=== PATIENT | male | born 1955 | race Caucasian/White ===

== ENCOUNTER → 2017-08-06 09:43 | Outpatient (CLI) | payer BC, SELFPAY ==
--- NOTE | 2017-08-06 09:50 | XR_ITS ---
XR hip RT 2-3V w/pelvis HISTORY: ITS.REASON: RT HIP PAIN ORDERING PHYSICIAN: Carl Bianchi MD PATIENT AGE: 61 years COMPARISON: None FINDINGS: No fracture or dislocation is evident. No significant degenerative change. No lytic or blastic change. Unremarkable soft tissues IMPRESSION: Negative right hip
--- NOTE | 2017-08-06 09:50 | XR_ITS ---
XR chest 2V HISTORY: ITS.REASON: CHEST PAIN ORDERING PHYSICIAN: Carl Bianchi MD PATIENT AGE: 61 years COMPARISON: 02/22/2010 FINDINGS: The cardiomediastinal silhouette and pulmonary vascularity are within normal limits. COPD with hyperinflation and attenuation of the peripheral pulmonary vessels. The lungs are clear without infiltrates, suspicious nodules, or pleural effusions. There is mild wedging involving what appears to represent L1 not readily apparent on the previous exam. This was not present on previous chest CT of 09/20/2016.. IMPRESSION: 1. COPD, no acute cardiac or pulmonary findings. 2. Mild wedging of L1 anteriorly having developed in the interval compared to previous chest CT of 09/20/2016
== END ==
PROVIDERS: PCP Family Medicine; Visit Provider Family Medicine
DX: M25.551 Pain in right hip (principal); R07.89 Other chest pain
CPT/HCPCS: 71046; 73502

== ENCOUNTER → 2018-02-21 07:59 | Outpatient (CLI) | payer BC, SELFPAY ==
[2018-02-21 09:00] LABS: Alanine Aminotransferase 16 U/L (12-78); Albumin Level 4.6 gm/dL (3.4-5.0); Albumin/Globulin Ratio 1.7 (1.1-1.8); Alkaline Phosphatase 100 U/L (46-116); Anion Gap 20.8 mEq/L (5-15); Aspartate Amino Transferase 7 U/L (15-37); Bilirubin,Total 0.2 mg/dL (0.2-1.0); Blood Urea Nitrogen 35 mg/dL (7-18); Calcium 9.2 mg/dL (8.5-10.1); Carbon Dioxide 17 mmol/L (21.0-32.0); Chloride 105 mmol/L (98-107); Chol/HDL Ratio 5.1 (1-3.5); Cholesterol 188 mg/dL (140-200); Creatinine,Serum 1.87 mg/dL (0.70-1.30); Estimated Glomerular Filt Rate 37 ml/min (>60); GFR (African American) 44 ML/MIN (>60); Globulin 2.7 gm/dl (1.3-3.2); Glucose 90 mg/dL (74-106); HDL Cholesterol 37 mg/dL (27-67); LDL Cholesterol 97 mg/dL (0-130); Potassium 4.8 mmoL/L (3.5-5.1); Sodium 138 mmol/L (136-145); Total Protein,Serum 7.3 gm/dL (6.4-8.2); Triglycerides 270 mg/dL (30-200); VLDL Cholesterol 54 mg/dL (0-40)
== END ==
PROVIDERS: Visit Provider Family Medicine
DX: I10 Essential (primary) hypertension (principal); E78.5 Hyperlipidemia, unspecified
CPT/HCPCS: 36415; 80053; 80061

== ENCOUNTER → 2018-03-03 15:16 | Outpatient (CLI) | payer BC, SELFPAY ==
--- NOTE | 2018-03-03 15:21 | CT_ITS ---
CT lung screening EXAM: CT LUNG LOW DOSE WO CONTRAST HISTORY: 62 year old male with 60 pack-year smoking history, asymptomatic ITS.REASON: NICOTINE DEPENDENCE ORDERING PHYSICIAN: Javier Li MD PATIENT AGE: 62 years COMPARISON: 09/20/2016 TECHNIQUE: The exam was performed on a [employer] Light Speed [address] scanner using 2.90 mGy CTDI. A low dose helical CT CHEST was performed on a multi-detector scanner. All CT scans at the facility use one or more dose reduction, viz: automated exposure control, ma/kV adjustment per patient size (including targeted exams where dose is matched to indication, i.e. head), or iterative reconstruction technique. The LDCT was performed in a facility that meets the criteria for the screening program. Data regarding this exam was submitted to ACR which is an approved registry. The order for this exam indicates that it came as a result of a lung cancer screening counseling shard decision-making visit that included all the elements required of such a visit including smoking cessation. The radiologist interpreting this exam meets the CMS criteria for the LDCT lung cancer screening program. The exam is reported using the Lung-RADS classification scale and reported to the ACR registry. NOTE: This study was performed for the specific purposes of lung cancer screening and is not an alternative to diagnostic chest CT. RADIATION DOSE: CTDI vol(CT dose Index-volume) = 2.90mG DLP (Dose Length Product) = 104.46 mGcm FINDINGS: Centrilobular emphysematous change with scattered areas of fibrosis 3 mm noncalcified nodule right upper lobe laterally not previously identified. 3 mm noncalcified nodule right upper lobe #28 4 mm noncalcified nodule right upper lobe centrally #40 unchanged 3 mm nodule right middle lobe #68 not readily apparent previously 6 mm new nodule right lung base medially #71 5 mm nodule right lung base centrally #69 Coronary artery calcifications. Mild thickening of the pericardium anteriorly and ununited sternal fracture is present involving the superior aspect of the body of the sternum not present previously IMPRESSION: 1. Lung RADS Category: 4A, suspicious regarding multiple new small nodules 2. Other findings: Coronary artery calcifications Ununited sternal body fracture not readily apparent previously RECOMMENDATIONS: [address] chest without and with contrast
== END ==
PROVIDERS: Family Provider Family Medicine; PCP Family Medicine; Visit Provider Family Medicine
DX: Z12.2 Encounter for screening for malignant neoplasm of respiratory organs (principal); Z87.891 Personal history of nicotine dependence

== ENCOUNTER → 2018-05-05 08:50 | Outpatient (CLI) | payer BC, SELFPAY ==
[2018-05-05 10:51] LABS: Anion Gap 17.3 mEq/L (5-15); Blood Urea Nitrogen 21 mg/dL (7-18); Calcium 9.1 mg/dL (8.5-10.1); Carbon Dioxide 21 mmol/L (21.0-32.0); Chloride 108 mmol/L (98-107); Creatinine,Serum 1.24 mg/dL (0.70-1.30); Estimated Glomerular Filt Rate 59 ml/min (>60); GFR (African American) 71 ML/MIN (>60); Glucose 96 mg/dL (74-106); Potassium 4.3 mmoL/L (3.5-5.1); Sodium 142 mmol/L (136-145)
[2018-05-06 13:19] LABS: Hep B Surface Ab, Qual Non Reactive (.); Hepatitis C Antibody <0.1 s/co ratio (0.0-0.9)
== END ==
PROVIDERS: Visit Provider Family Medicine
DX: Z00.00 Encounter for general adult medical examination without abnormal findings (principal); Z01.812 Encounter for preprocedural laboratory examination; N28.9 Disorder of kidney and ureter, unspecified
CPT/HCPCS: 36415; 80048; 86706; 87380; 93005

== ENCOUNTER → 2018-06-06 12:32 | Outpatient (CLI) | payer BC, SELFPAY ==
--- NOTE | 2018-06-06 12:39 | CT_ITS ---
CT chest wo/w con HISTORY: Follow-up pulmonary nodules, abnormal chest CT,, tobacco use, smoker ITS.REASON: [address], follow up abnormal screening chest CT ORDERING PHYSICIAN: Gaston Vee MD PATIENT AGE: 62 years COMPARISON: 03/03/2019 Technique: Axial images obtained without and following intravenous administration of 75 mL of Isovue-370 with sagittal and coronal reformats. All CT scans at the facility use one or more dose reduction, viz: automated exposure control, ma/kV adjustment per patient size (including targeted exams where dose is matched to indication, i.e. head), or iterative reconstruction technique. FINDINGS: No mediastinal or hilar mass or adenopathy. There are coronary artery calcifications as well as some calcification of the aortic valve. The heart size is normal. There is minimal pericardial thickening anteriorly is nonspecific. No evidence of aortic aneurysm or central pulmonary embolus. There are centrilobular emphysematous changes with scattered areas of fibrosis. There are multiple small pulmonary nodular opacities once again noted. Most of these are unchanged. The previously described 6 mm nodule in the right lung base medially however is less apparent. No change 4 mm nodule right middle lobe image #42. No change 4 mm nodule right upper lobe image #26. No enhancing lesions evident. No effusions or infiltrates. There are mild fibrotic changes in left lung base. Upper abdominal images are unremarkable. There is chronic wedging involving the L1 vertebral body. IMPRESSION: 1. Small right-sided pulmonary nodules as described above. These are unchanged to somewhat less apparent. Previously noted 6 mm nodule right lung base is less apparent. Suggest continued 6 month follow-up which can be done without contrast 2. Centrilobular emphysema with coronary artery calcification.
[2018-06-06 12:40] LABS: Hematocrit 44.7 % (42.0-52.0); Hemoglobin 13.7 g/dL (14.1-18.0)
[2018-06-06 12:48] LABS: Anion Gap 17.3 mEq/L (5-15); Blood Urea Nitrogen 21 mg/dL (7-18); Calcium 8.7 mg/dL (8.5-10.1); Carbon Dioxide 21 mmol/L (21.0-32.0); Chloride 105 mmol/L (98-107); Creatinine,Serum 1.29 mg/dL (0.70-1.30); Estimated Glomerular Filt Rate 56 ml/min (>60); GFR (African American) 68 ML/MIN (>60); Glucose 100 mg/dL (74-106); Potassium 4.3 mmoL/L (3.5-5.1); Sodium 139 mmol/L (136-145)
== END ==
PROVIDERS: PCP Family Medicine; Visit Provider Otolaryngology
DX: Z01.812 Encounter for preprocedural laboratory examination (principal); R93.89 Abnormal findings on diagnostic imaging of other specified body structures
CPT/HCPCS: 36415; 71270; 80048; 85014; 85018; Q9967

== ENCOUNTER → 2018-08-13 07:17 | Outpatient (CLI) | payer BC, SELFPAY ==
[2018-08-13 10:29] LABS: Alanine Aminotransferase 16 U/L (12-78); Albumin Level 4.3 gm/dL (3.4-5.0); Albumin/Globulin Ratio 1.3 (1.1-1.8); Alkaline Phosphatase 107 U/L (46-116); Anion Gap 18.2 mEq/L (5-15); Aspartate Amino Transferase 11 U/L (15-37); Bilirubin,Total 0.2 mg/dL (0.2-1.0); Blood Urea Nitrogen 20 mg/dL (7-18); Calcium 9.3 mg/dL (8.5-10.1); Carbon Dioxide 19 mmol/L (21.0-32.0); Chloride 107 mmol/L (98-107); Chol/HDL Ratio 5.3 (1-3.5); Cholesterol 217 mg/dL (140-200); Creatinine,Serum 1.26 mg/dL (0.70-1.30); Estimated Glomerular Filt Rate 58 ml/min (>60); GFR (African American) 70 ML/MIN (>60); Globulin 3.2 gm/dl (1.3-3.2); Glucose 108 mg/dL (74-106); HDL Cholesterol 41 mg/dL (27-67); LDL Cholesterol 111 mg/dL (0-130); Potassium 4.2 mmoL/L (3.5-5.1); Prostate Specific Ag Screen 0.5 ng/mL (0.0-4.0); Sodium 140 mmol/L (136-145); Total Protein,Serum 7.5 gm/dL (6.4-8.2); Triglycerides 326 mg/dL (30-200); VLDL Cholesterol 65 mg/dL (0-40)
== END ==
PROVIDERS: Visit Provider Family Medicine
DX: E78.5 Hyperlipidemia, unspecified (principal); I10 Essential (primary) hypertension; Z12.5 Encounter for screening for malignant neoplasm of prostate
CPT/HCPCS: 36415; 80053; 80061; G0103

== ENCOUNTER 2019-01-27 12:08 | Outpatient (CLI) | payer BC, SELFPAY ==
[2019-01-27 12:45] VITALS: BP 150/78; PULSE 84; RESP 20; TEMP 36.9; O2SAT 95
[2019-01-27 13:15] VITALS: BP 152/80; PULSE 68; RESP 20; TEMP 36.9; O2SAT 95
[2019-01-27 13:50] VITALS: BP 158/74; PULSE 86; RESP 20; TEMP 36.9; O2SAT 95
== END 2019-01-27 13:55 | disposition home or self-care (01) ==
LOC: INF 12:11
PROVIDERS: PCP Family Medicine; Visit Provider Family Medicine
DX: K52.9 Noninfective gastroenteritis and colitis, unspecified (principal)
CPT/HCPCS: 96360

== ENCOUNTER → 2019-06-10 13:07 | Outpatient (CLI) | payer BC, SELFPAY ==
--- NOTE | 2019-06-10 14:20 | CT_ITS ---
PROCEDURE: CT CHEST WO/W CON CLINCAL INDICATION: PULMONARY NODULES Follow-up pulmonary nodules COMPARISON: LUNGSCREEN CT lung screening from 03/03/[address] chest wo/w con from 06/06/2018 TECHNIQUE: IV Contrast: 75ml Optiray 350 Axial images obtained with sagittal and coronal reformats. All CT scans at the facility use one or more dose reduction, viz: automated exposure control, ma/kV adjustment per patient size (including targeted exams where dose is matched to indication, i.e. head), or iterative reconstruction technique. FINDINGS: HEART,AORTA,PULMONARY ARTERIES normal heart size. Coronary artery calcium noted. There is also some calcification the aortic valve. Minimal thickening of the pericardium anteriorly. MEDIASTINAL AND HILAR STRUCTURES: No mediastinal or hilar mass evident. No dominant adenopathy. LUNGS: COPD/centrilobular emphysema there is an ill-defined 5 mm opacity in the superior segment of the right lower lobe not significantly changed. No new nodules are evident. Stable small nodular opacities on the right. No suspicious lesions. No effusions or infiltrates. PLEURAL SPACES: No significant effusion. No evidence of pneumothorax. BONY STRUCTURES: No acute bony abnormalities apparent. LYMPH NODES: No enlarged lymph nodes evident. UPPER ABDOMEN: Unremarkable. ADDITIONAL FINDINGS: Chronic wedging of L1. IMPRESSION: Stable CT appearance of the chest. Stable right-sided nodular opacities. No acute finding Dictated by: Rayray Mendiola MD 06/12/2019 05:39 Electronically signed by Rayray Mendiola MD in [place] 06/12/2019 12:10
[2019-06-10 14:34] LABS: Blood Urea Nitrogen 29 mg/dL (7-18); Creatinine,Serum 1.54 mg/dL (0.70-1.30); Estimated Glomerular Filt Rate 46 ml/min (>60); GFR (African American) 55 ML/MIN (>60)
== END ==
PROVIDERS: Visit Provider Nurse Practitioner Family
DX: R91.1 Solitary pulmonary nodule (principal)
CPT/HCPCS: 36415; 71270; 82565; 84520; Q9967

== ENCOUNTER 2020-01-14 18:58 | Emergency (ER) | payer MEDICARE, BC, SELFPAY ==
[2020-01-14 19:20] VITALS: BP 148/85; PULSE 78; RESP 20; TEMP 36.6; O2SAT 98; BMI 21.4
--- NOTE | 2020-01-14 19:20 | XR_ITS ---
PROCEDURE: XR RIBS RT MIN 3V W CXR1V CLINICAL INDICATION: FALL Injury with pain on the right COMPARISON: CXR2V XR chest 2V from 08/06/2017 CT CHEST WO/W CON from 06/10/2019 FINDINGS: Frontal view of the chest shows mild atelectatic changes in the lung bases. There is some minimal cortical regularity involving the 7th and 9th ribs anterior laterally which could be due to a nondisplaced fracture. IMPRESSION: Nondisplaced fracture right 7th and 9th ribs ribs Dictated by: Rayray Mendiola MD 01/15/2020 08:08 Electronically signed by Rayray Mendiola MD in [place] 01/15/2020 08:08
[2020-01-14 20:00] VITALS: BP 148/85; PULSE 78; RESP 20; TEMP 36.6; O2SAT 98
--- NOTE | 2020-01-14 20:00 | HMH.EDUTC ---
[facility] [place] Disposition Clinical Impression: Rib pain on right side Fall Qualifiers: Encounter type: initial encounter Qualified Code(s): W19.XXXA - Unspecified fall, initial encounter Disposition: Home, Self-Care Condition on Discharge: Good Instructions: DI for Rib Contusion Additional Instructions: Use the incentive spirometer as directed. Follow up with your regular doctor. Take ibuprofen or alieve for you pain. GO TO THE ER FOR ANY WORSENING SYMPTOMS OR CONCERNS Referrals: Javier Li MD [Primary Care Provider] - Time of Disposition: 20:08 Medical Decision Making - Medical Records Medical records reviewed: No: I reviewed the patient's medical records. - Lobo Inquiry Pt receiving controlled substance: No Vital Signs: 01/14/20 19:20 01/14/20 20:00 Temperature 97.9 F 97.9 F Temperature Source Oral Pulse Rate 78 Pulse Rate [Left Brachial] 78 Respiratory Rate 20 20 Blood Pressure 148/85 H Blood Pressure [Left Arm] 148/85 H Blood Pressure Mean [Left Arm] 106 Blood Pressure Source [Left Arm] Automatic Cuff Blood Pressure Position [Left Arm] Sitting 02 Sat by Pulse Oximetry 98 Oxygen Delivery Method Room Air Orders (Tests/Meds): ED MEDICATIONS Discontinued Medications Generic Name Dose Route Start Last Admin Trade Name Freq PRN Reason Stop Dose Admin Ketorolac Tromethamine 30 mg 01/14/20 19:46 01/14/20 19:51 Toradol 60mg/2ml Vial IM 01/14/20 19:47 30 mg ONCE ONE Administration ORDERS Category Date Time Status XR ribs RT min 3V w CXR1V Stat Exams 01/14/20 19:20 Taken [facility] [place] HPI - General Stated complaint: AO 0709@1600 fell hit right side Time Seen by Provider: 01/14/20 19:25 Mode of Arrival: Ambulatory Source of Information: Patient Limitations: No Limitations Description of Symptoms (Recalled from Triage Doc. by RN): PATIENT C/O RIGHT RIB PAIN WITH SHORTNESS OF BREATH AFTER HE WAS TRIPPED BY HIS CAT AND FELL INTO A STAINLESS STEEL CART AT HOME TODAY. DENIES ANY OTHER INJURIES HEENT Symptoms (Recalled from RN notes): No Resp Symptoms (Recalled from RN notes): No Skin Symptoms (Recalled from RN notes): No MS Symptoms (Recalled from RN notes): Yes Functional Status (Recalled from RN notes): WNL - History of Present Illness Provider Complaint: He states that he was tripped up by his cat and he fell into a metal table. He hit the table with his right ribs. Since then he has had right rib pain that is worse with deep breathing and coughing. - Related Data Home Medications Medication Instructions Recorded Confirmed Atorvastatin Calcium [Atorvastatin 20 mg PO HS 01/27/19 01/14/20 20mg Tab] Metoprolol Succinate [Toprol XL 25 mg PO DAILY 01/27/19 01/14/20 25mg tablet] Allergies Allergy/AdvReac Type Severity Reaction Status Date / Time ciprofloxacin [From CIPRO] Allergy Unknown I-HIVES Verified 01/27/19 12:33 codeine [CODEINE] Allergy Unknown NAUSEA/VOMI Verified 01/27/19 12:33 T PENCILLIN Allergy Unknown I-HIVES Uncoded 06/25/17 14:45 - Worker's Comp Is this a Worker's Comp case?: No [facility] History - Hepatitis A Screen Drug use history?: No High risk sexual behaviors?: No History of sexually transmitted infection?: No Currently employed?: No Childcare worker?: No Do you have indoor plumbing?: Yes Do you have electricity?: Yes Attestation statement:: This patient has been screened for Hepatitis A risk factors. I have reviewed the patient's past medical history: Yes Medical History: Reports:: Cancer Laterality Cases: Bilateral: Tonsillectomy - Social History Alcohol Intake: never Occupational Status: other ROS Obtained: Yes All systems reviewed & no additional complaints - Constitutional Constitutional: Denies chills, Denies fever(s) - Cardiovascular Cardiovascular: Reports as per HPI - Respiratory Respiratory: No chest congestion, No cough, No dyspnea, No coughing up blood, No stridor
--- NOTE | 2020-01-14 20:07 | PC.NURSE ---
PATIENT GIVEN INCENTIVE SPIROMETER AND INSTRUCTED ON HOW TO USE, HOW OFTEN TO USE IT, AND REASON/IMPORTANCE OF USING IT. PATIENT VERBALIZED UNDERSTANDING.
== END 2020-01-14 20:10 | disposition home or self-care (01) ==
PROVIDERS: Emergency Provider Nurse Practitioner Family; PCP Family Medicine
DX: S22.41XA Multiple fractures of ribs, right side, initial encounter for closed fracture (principal); W01.190A Fall on same level from slipping, tripping and stumbling with subsequent striking against furniture, initial encounter; Y92.019 Unspecified place in single-family (private) house as the place of occurrence of the external cause; Z88.0 Allergy status to penicillin; Z88.5 Allergy status to narcotic agent
CPT/HCPCS: 71101; 96372; 99202

== ENCOUNTER → 2020-04-01 11:13 | Outpatient (CLI) | payer MEDICARE, BC, SELFPAY ==
--- NOTE | 2020-04-01 11:27 | ECG_ITS ---
APPROVED REPORT Exam: Resting ECG HR:69 bpm ECG Measurements Heart Rate 69 AXES WY 170 P 58 QRSd 82 QRS 58 QT 424 T 30 QTc 454 <Conclusion> Normal sinus rhythm Normal ECG Electronically signed by : Naeem Rose, 04/02/2020 06:25:03
== END ==
PROVIDERS: PCP Family Medicine; Visit Provider Family Medicine
DX: Z00.00 Encounter for general adult medical examination without abnormal findings (principal)
CPT/HCPCS: 93005

== ENCOUNTER → 2020-05-05 12:56 | Outpatient (CLI) | payer MEDICARE, BC, SELFPAY ==
--- NOTE | 2020-05-06 14:12 | PC.NURSE ---
PATIENT TOOK HST HOME - BROUGHT DEVICE BACK AND STATED IT WASN'T WORKING - CODE 6 - NO DATA TO UPLOAD NO CHARGE TO PATIENT - PATIENT WILL BE RESCHEDULED..
== END ==
PROVIDERS: PCP Family Medicine; Visit Provider Family Medicine
DX: I10 Essential (primary) hypertension (principal); R06.83 Snoring

== ENCOUNTER → 2020-05-24 12:55 | Outpatient (CLI) | payer MEDICARE, BC, SELFPAY | PROVIDERS: PCP Family Medicine; Visit Provider Family Medicine | DX: G47.33 Obstructive sleep apnea (adult) (pediatric) (principal); R06.83 Snoring; I10 Essential (primary) hypertension | CPT/HCPCS: G0399 ==

== ENCOUNTER → 2020-06-13 07:57 | Outpatient (CLI) | payer MEDICARE, BC, SELFPAY ==
--- NOTE | 2020-06-13 08:01 | CT_ITS ---
PROCEDURE: CT LUNG SCREENING CLINICAL INDICATION: HX OF NICOTINE DEPENDENCE FORMER SMOKER QUIT 3 YEARS AGO 60 pack year smoking history family hx lung ca pt hx of lymphoma prior LDLS, 03/03/18 chest wo/w, 06/10/19 COMPARISON: CT CT CHEST WO/W CON from 06/10/2019 TECHNIQUE: The exam was performed on a [employer] Light Speed [address] scanner using 2.90 mGy CTDI. A low dose helical CT CHEST was performed on a multi-detector scanner. All CT scans at the facility use one or more dose reduction, viz: automated exposure control, ma/kV adjustment per patient size (including targeted exams where dose is matched to indication, i.e. head), or iterative reconstruction technique. The LDCT was performed in a facility that meets the criteria for the screening program. Data regarding this exam was submitted to ACR which is an approved registry. The order for this exam indicates that it came as a result of a lung cancer screening counseling shard decision-making visit that included all the elements required of such a visit including smoking cessation. The radiologist interpreting this exam meets the CMS criteria for the LDCT lung cancer screening program. The exam is reported using the Lung-RADS classification scale and reported to the ACR registry. NOTE: This study was performed for the specific purposes of lung cancer screening and is not an alternative to diagnostic chest CT. RADIATION DOSE: CTDI vol(CT dose Index-volume) = 2.90mG DLP (Dose Length Product) = 115.16 mGcm FINDINGS: COPD with scattered areas of scarring with mild bronchial thickening. Previously described nodular opacity superior segment right lower lobe somewhat less apparent. No new nodules. Calcified granuloma is present in the right lower lobe. There is mild chronic wedging of L1 not significantly changed. OTHER FINDINGS: Coronary artery calcification noted. IMPRESSION: Lung-RADS Category 2 Benign Appearance or Behavior Follow-up: Continue annual screening with LDCT in 12 months Dictated by: Rayray Mendiola MD 07/04/2020 11:27 Rayray Mendiola MD in [place] 07/04/2020 11:27
== END ==
PROVIDERS: PCP Family Medicine; Visit Provider Family Medicine
DX: Z87.891 Personal history of nicotine dependence (principal); Z12.2 Encounter for screening for malignant neoplasm of respiratory organs

== ENCOUNTER → 2020-12-12 09:49 | Outpatient (CLI) | payer MEDICARE, BC, SELFPAY | PROVIDERS: PCP Family Medicine; Visit Provider Specialist | DX: G47.33 Obstructive sleep apnea (adult) (pediatric) (principal) | CPT/HCPCS: G0399 ==

== ENCOUNTER → 2022-01-17 07:07 | Outpatient (CLI) | payer MEDICARE, BC, SELFPAY ==
--- NOTE | 2022-01-17 07:14 | CT_ITS ---
FINAL REPORT TECHNIQUE: Axial images were obtained from the lung apex to the mid abdomen by computed tomography. This study was performed with techniques to keep radiation doses as low as reasonably achievable (ALARA). Individualized dose reduction techniques using automated exposure control or adjustment of mA and/or kV according to the patient's size were employed. CLINICAL HISTORY: H/O NICOTINE DEPENDENCE FORMER SMOKER 2PPD X30 YEARS, QUIT 5 YEARS AGO COMPARISON: 06/13/2020 FINDINGS: CHEST CT LOW DOSE CTDI vol (mGy): 2.90 DLP (mGy-cm): 106.81 There is no axillary adenopathy. There is no hilar or mediastinal adenopathy. The ascending aorta measures 3.7 cm in diameter. The heart is normal in size. There is no pericardial or pleural effusion. There is scarring at the lung bases. There is a new 4 mm nodule in the right lower lobe well seen on image 186 of series 2 Limited images of the upper abdomen are unremarkable. IMPRESSION: New right lower lobe nodule. Lung RADS category 3. Recommend 6 month follow-up low-dose chest CT. Reviewed, Interpreted and Dictated by Jony Stein MD Transcribed by Alma Feng Authenticated and [facility]
[2022-01-17 08:30] VITALS: PULSE 78; PULSE 79
== END ==
PROVIDERS: PCP Family Medicine; Visit Provider Family Medicine
DX: Z87.891 Personal history of nicotine dependence (principal); Z12.2 Encounter for screening for malignant neoplasm of respiratory organs; R06.09 Other forms of dyspnea
CPT/HCPCS: 71271; 94060; 94640; 94727; 94729

== ENCOUNTER → 2022-07-30 13:29 | Outpatient (CLI) | payer MEDICARE, BC, SELFPAY ==
--- NOTE | 2022-07-30 13:32 | CT_ITS ---
FINAL REPORT TECHNIQUE: Thin section axial images were obtained from the lung apices through the upper abdomen without contrast. This study was performed with techniques to keep radiation doses as low as reasonably achievable (ALARA). Individualized dose reduction techniques using automated exposure control or adjustment of mA and/or kV according to the patient's size were employed. CLINICAL HISTORY: LUNG NODULE, 6month followup COMPARISON: January 2022 FINDINGS: There is no mediastinal, hilar, or axillary lymphadenopathy. There is no pleural or pericardial effusion. There is linear scarring in the lingula. Emphysematous changes are present. There is a stable 4 mm nodule in the right lower lobe on image 44. Limited, unenhanced evaluation of the upper abdomen is without acute abnormality. There is no acute osseous abnormality. IMPRESSION: Stable 4 mm right lower lobe nodule. Recommend follow-up in 12 months. Reviewed, Interpreted and Dictated by Maile Wise MD Transcribed by Kush Mars Authenticated and . [facility]
== END ==
PROVIDERS: PCP Family Medicine; Visit Provider Physician Assistant
DX: R91.1 Solitary pulmonary nodule (principal)
CPT/HCPCS: 71250

== ENCOUNTER → 2022-11-01 10:30 | Outpatient (CLI) | payer MEDICARE, BC, SELFPAY ==
--- NOTE | 2022-11-01 10:37 | CT_ITS ---
FINAL REPORT TECHNIQUE: Thin section axial CT images with coronal and sagittal reformats were performed through the neck. This study was performed with techniques to keep radiation doses as low as reasonably achievable (ALARA). Individualized dose reduction techniques using automated exposure control or adjustment of mA and/or kV according to the patient''s size were employed. CLINICAL HISTORY: LYMPHOMA FINDINGS: The nasopharynx , oropharynx, hypopharynx, and larynx are unremarkable. The thyroid gland is unremarkable. There is no mass or adenopathy identified. Mild to moderate degenerative changes are seen in the cervical spine. There is mild anterolisthesis of C4 on C5. Mild emphysema and scarring is seen in the lung apices. IMPRESSION: No mass or adenopathy identified. Reviewed, Interpreted and Dictated by Jeison Cruz III, MD Transcribed by Michelle Sanchez Authenticated and [facility]
== END ==
PROVIDERS: PCP Family Medicine; Visit Provider Family Medicine
DX: C85.91 Non-Hodgkin lymphoma, unspecified, lymph nodes of head, face, and neck (principal)
CPT/HCPCS: 70490

== ENCOUNTER 2023-07-30 12:11 | Day surgery (SDC) | payer MEDICARE, BC, SELFPAY ==
[2023-07-30] MEDS: LACTATED RINGERS 1000ML 1,000 ML 25 ML IV (12:26)
[2023-07-30 12:30] VITALS: BP 150/91; PULSE 82; RESP 18; TEMP 36.3; O2SAT 97; BMI 23.5
--- NOTE | 2023-07-30 12:35 | EXP.ANES.CKL ---
[facility] Disclaimer: The information contained in this section may have been updated after the patient was seen, as this information can be updated by other users. Medical History HLD (hyperlipidemia) HTN (hypertension) Surgical History History of appendectomy History of knee replacement Hx of hemorrhoidectomy Hx of hernia repair Hx of nasal septoplasty Hx of unilateral orchiectomy Family History Other No significant family history Social History Smoking Status: Former smoker tobacco type: cigarettes alcohol intake: never substance use type: denies use current occupational status: retired Travel in the last 8 weeks: None household members: spouse housing: house [facility] Anesthesia Checklist Patient Identification Patient Identification: Arm Band and Verbal (Name & ) Structural Data Admitted From: Home Planned Operative Procedure/s: Colonoscopy Consent for Planned Operative Procedure(s) Verified: Yes NPO Status Verified Time NPO: 00:00 Airway Assessment Mallampati Score:: Class II C-Spine Mobility Assessed: Yes TMJ Mobility Assessed: Yes Dentition: Good Dentition Neurological Assessment Level of Consciousness: Awake Hx Seizures: No Numbness or tingling in extremities: No Anesthesia Plan Anesthesia Risk discussed: Yes Anesthesia Plan: Verified ASA Class: II Anesthesia Type: MAC
[2023-07-30 12:41] VITALS: O2SAT 97
[2023-07-30 13:15] VITALS: BP 80/51; PULSE 67; RESP 14; TEMP 36.8; O2SAT 94
--- NOTE | 2023-07-30 13:16 | P.PCN_ITS ---
Procedure: Date: 07/30/23 Patient Date of :: 1955 Procedure Performed:: Colonoscopy Indications:: Screening Performing Provider:: Amadou Lacy MD Referring Provider:: . Sedation:: Monitored anesthesia care Procedure:: After informed consent was obtained the patient was taken to the endoscopy suite. Sedation ensued after the patient was transferred to the left lateral decubitus position. Pulse, blood pressure, and oxygen saturation were monitored throughout the procedure. Digital rectal exam revealed no significant abnormality. The colonoscope was placed in position. The entire colon was eval uated. The colonoscope was carefully removed and the patient was transferred to recovery in stable condition. Please see findings and specimens below for detail. Findings:: Bowel preparation fairly poor Moderate spasticity Moderate lack of relaxation Specimens:: None Recommendations:: Repeat colonoscopy in 1-2 years with extended bowel preparation Complications:: No immediate with the exception of fairly poor bowel preparation Estimated blood obtained (mL): 0 Colonoscopy Component Colonoscopy Component Was a colonoscopy performed during today's procedure?: Yes Recommended follow up colonoscopy of at least 10 years?: No If no, follow up colonoscopy recommended in ___ years?: (See above) Reason for not recommending >/= 10 yr follow-up interval?: (See above)
[2023-07-30 13:25] VITALS: BP 95/66; PULSE 80; RESP 16; O2SAT 95
[2023-07-30 13:35] VITALS: BP 114/63; PULSE 72; RESP 17; O2SAT 94
[2023-07-30 13:45] VITALS: BP 114/63; PULSE 72; RESP 18; O2SAT 94
== END 2023-07-30 13:50 | disposition home or self-care (01) ==
PROVIDERS: PCP Family Medicine; Visit Provider Surgery
PROC: 0DJD8ZZ Inspection of Lower Intestinal Tract, Via Natural or Artificial Opening Endoscopic (ICD-10-PCS; CPT G0121; principal; 2023-07-30 13:30)
DX: Z12.11 Encounter for screening for malignant neoplasm of colon (principal)
CPT/HCPCS: G0121

== ENCOUNTER 2023-08-06 14:44 | Outpatient (CLI) | payer MEDICARE, BC, SELFPAY ==
--- NOTE | 2023-08-06 14:54 | CT_ITS ---
FINAL REPORT TECHNIQUE: Axial CT without IV contrast administration. This study was performed with techniques to keep radiation doses as low as reasonably achievable (ALARA). Individualized dose reduction techniques using automated exposure control or adjustment of mA and/or kV according to the patient's size were employed. CLINICAL HISTORY: PULMONARY NODULE COMPARISON: 07/30/2022 FINDINGS: No acute lung disease is present. Note is made of emphysema. Lingular scarring is identified. No pleural or pericardial effusion is seen. No adenopathy or mass lesion is present. IMPRESSION: No suspicious findings. Reviewed, Interpreted and Dictated by Eda Simms MD Transcribed by Alma Feng Authenticated and [facility]
== END 2023-08-06 23:59 ==
LOC: RAD 14:44
PROVIDERS: PCP Family Medicine; Visit Provider Family Medicine
DX: R91.1 Solitary pulmonary nodule (principal)
CPT/HCPCS: 71250

== ENCOUNTER 2024-04-09 14:49 | Outpatient (CLI) | payer MEDICARE, BC, SELFPAY ==
--- NOTE | 2024-04-09 14:54 | XR_ITS ---
FINAL REPORT TECHNIQUE: 5 views CLINICAL HISTORY: SCIATICA FINDINGS: There is a 50% compression deformity of T12 anteriorly. There are associated hypertrophic changes. There are mild anterior osteophyte seen at L2-3 and mild facet sclerosis at the lower lumbar spine. There is no malalignment. There are no significant degenerative changes. IMPRESSION: 50% compression deformity of T12 anteriorly with associated hypertrophic change. Reviewed, Interpreted and Dictated by Jony Stein MD Transcribed by Zena Gavin Authenticated and [facility]
== END 2024-04-09 23:59 | disposition home or self-care (01) ==
LOC: RAD 14:50
PROVIDERS: PCP Family Medicine; Visit Provider Family Medicine
DX: M54.30 Sciatica, unspecified side (principal)
CPT/HCPCS: 72110

== ENCOUNTER 2024-05-26 09:29 | Outpatient (CLI) | payer MEDICARE, BC, SELFPAY ==
--- NOTE | 2024-05-26 09:39 | XR_ITS ---
FINAL REPORT CLINICAL HISTORY: PAIN FINDINGS: Right hip Three views were obtained. There is no fracture or dislocation. There is mild narrowing of the right hip joint space. No soft tissue abnormality is identified. IMPRESSION: Mild degenerative changes. Reviewed, Interpreted and Dictated by Jony Stein MD Transcribed by Alma Feng Authenticated and [facility]
== END 2024-05-26 23:59 | disposition home or self-care (01) ==
LOC: RAD 09:31
PROVIDERS: PCP Family Medicine; Visit Provider Family Medicine
DX: M25.551 Pain in right hip (principal)
CPT/HCPCS: 73502

== ENCOUNTER 2024-08-04 06:08 | Day surgery (SDC) | payer MEDICARE, BC, SELFPAY ==
[2024-07-28 12:55] VITALS: BMI 24.2
[2024-08-04 06:29] VITALS: BP 159/92; PULSE 66; RESP 18; TEMP 36.7; O2SAT 94
[2024-08-04] MEDS: LACTATED RINGERS 1000ML 1,000 ML 50 ML IV (06:38)
--- NOTE | 2024-08-04 07:04 | HMH.SCOPE ---
Procedure: Date: 08/04/24 Patient Date of :: 1955 Procedure Performed:: Colonoscopy with polypectomy Indications:: Screening Note: Colonoscopy in July 2023 was complicated by poor bowel preparation and moderate spasticity/lack of relaxation. Short-term repeat evaluation warranted. Performing Provider:: Amadou Lacy MD Referring Provider:: . Sedation:: Monitored anesthesia care Procedure:: After informed consent was obtained the patient was taken to the endoscopy suite. Sedation ensued after the patient was transferred to the left lateral decubitus position. Pulse, blood pressure, and oxygen saturation were monitored throughout the procedure. Digital rectal exam revealed no significant abnormality. The colonoscope was placed in position. The entire colon was evaluated. The colonoscope was carefully removed and the patient was transferred to recovery in stable condition. Please see findings and specimens below for detail. Findings:: Bowel preparation fair in areas and moderate to poor in others Fairly significant tortuosity Severe spasticity/lack of relaxation Polyps (see specimens) Specimens:: Sessile proximal right colon polyp (cold snare) Polyp at 15 cm (cold snare) Recommendations:: Timing of repeat colonoscopy is pending pathology will likely be between 2-3 years with alternate/extended bowel preparation Complications:: No immediate Estimated blood obtained (mL): 1 Colonoscopy Component Colonoscopy Component Was a colonoscopy performed during today's procedure?: Yes Recommended follow up colonoscopy of at least 10 years?: No If no, follow up colonoscopy recommended in ___ years?: (See above) Reason for not recommending >/= 10 yr follow-up interval?: (See above)
[2024-08-04 07:17] VITALS: O2SAT 99
[2024-08-04 07:51] VITALS: BP 89/57; PULSE 78; RESP 16; TEMP 36.6; O2SAT 94
--- NOTE | 2024-08-04 07:53 | P.PNANES_ITS ---
[facility] Disclaimer: The information contained in this section may have been updated after the patient was seen, as this information can be updated by other users. Medical History Non Hodgkin's lymphoma Sleep apnea HLD (hyperlipidemia) HTN (hypertension) Surgical History Hx of hernia repair Hx of unilateral orchiectomy History of appendectomy Hx of nasal septoplasty Hx of hemorrhoidectomy History of knee replacement Family History Other Lung cancer No significant family history Pancreatic cancer Social History (Updated 08/04/24 @ 06:30 by Margi Shannon RN) Smoking Status: Former smoker tobacco type: cigarettes alcohol intake: never substance use type: denies use current occupational status: retired Travel in the last 8 weeks: None household members: spouse housing: house caffeine: Yes Have you lived/traveled outside [place] in past 30 days?: No Contact w/someone who lives/traveled outside [place] past 30 days?: No Exposure to someone with infectious disease in past 14 days?: No Do you have a fever (greater than 100.4 F or 38 C)?: No Have you tested positive for COVID-19: No Exposed to someone with COVID-19 in past 14 days?: No Do you have a sore throat?: No Do you have a cough?: No Do you have any weakness?: No Are you experiencing any nausea/vomitting?: No Do you have any diarrhea?: No Are you experiencing any unusual bleeding?: No Do you have any muscle aches/pain?: No Do you have any abdominal pain?: No Are you experiencing loss of taste or smell?: No [facility] Anesthesia Checklist Patient Identification Patient Identification: Verbal (Name & ) Structural Data Admitted From: Home Planned Operative Procedure/s: colonoscopy Consent for Planned Operative Procedure(s) Verified: Yes Airway Assessment Mallampati Score:: Class II C-Spine Mobility Assessed: Yes Dentition: Good Dentition Neurological Assessment Level of Consciousness: Awake, Alert and Appropriate Anesthesia Plan Anesthesia Risk discussed: Yes Anesthesia Plan: Verified ASA Class: II Anesthesia Type: MAC
[2024-08-04 08:01] VITALS: BP 92/66; PULSE 72; RESP 16; O2SAT 97
[2024-08-04 08:11] VITALS: BP 107/69; PULSE 83; RESP 16; O2SAT 99
[2024-08-04 08:13] VITALS: BP 115/62; PULSE 75; RESP 16; O2SAT 97
== END 2024-08-04 08:15 | disposition home or self-care (01) ==
PROVIDERS: PCP Family Medicine; Visit Provider Surgery
PROC: 0DJD8ZZ Inspection of Lower Intestinal Tract, Via Natural or Artificial Opening Endoscopic (ICD-10-PCS; CPT 45385; principal; 2024-08-04 07:30)
DX: K63.5 Polyp of colon (principal); D12.2 Benign neoplasm of ascending colon; Z12.11 Encounter for screening for malignant neoplasm of colon
CPT/HCPCS: 45385; J7120

== ENCOUNTER 2024-10-22 07:02 | Outpatient (CLI) | payer MEDICARE, BC, SELFPAY ==
--- NOTE | 2024-10-22 07:04 | CT_ITS ---
FINAL REPORT TECHNIQUE: Thin section axial images were obtained from the lung apices to the upper abdomen by computed tomography. Reformatted images were obtained and reviewed. This study was performed with techniques to keep radiation doses al low as reasonably achievable (ALARA). Individualized dose reduction techniques using automated exposure control or adjustment of mA and/or kV according to the patient's size were employed. CLINICAL HISTORY: SCREENING FORMER SMOKER QUIT 5-7 YEARS AGO, 1PPD X30+ YEARS COMPARISON: 01/17/2022, 08/06/2023 FINDINGS: CHEST CT LOW DOSE 68-year-old male, former smoker who quit 5 to 7 years ago, 92-auie-nezf history CTDI vol (mGy): 2.90 DLP (mGy-cm): 105.25 There is no axillary adenopathy. There is no mediastinal or hilar mass or adenopathy. The heart is normal in size. Moderate coronary artery calcifications are present. There is no pericardial or pleural effusion. There is mild emphysema and mild pulmonary scarring, particularly in the lingula. Lung window images demonstrate no suspicious infiltrate or nodule. Limited images of the upper abdomen are unremarkable. IMPRESSION: Lung-RADS category 1. Recommend 12 month follow up low dose chest CT. Reviewed, Interpreted and Dictated by Jony Stein MD Transcribed by Felipa Gasca Authenticated and [facility]
== END 2024-10-22 23:59 | disposition home or self-care (01) ==
LOC: RAD 07:03
PROVIDERS: PCP Family Medicine; Visit Provider Family Medicine
DX: Z87.891 Personal history of nicotine dependence (principal)
CPT/HCPCS: 71271